=== PATIENT | female | born 1940 | race African-American/Black ===

== ENCOUNTER 2017-01-18 06:47 | Inpatient (IN) ==
[2017-01-18] MEDS ORDERED: VANCOMYCIN INJ 1,000 MG in SODIUM CHLORIDE 0.9% 250 ML IV ONE ×2 (07:00→19:49)
[2017-01-18] MEDS ORDERED: VANCOMYCIN 1,000 MG VIAL ONE (07:20)
[2017-01-18] MEDS ORDERED: ceFAZolin 1,000 MG VIAL ONE (07:21)
[2017-01-18] MEDS ORDERED: SODIUM CHLORIDE 0.9% 100 ML IV ONE (07:21)
[2017-01-18] MEDS ORDERED: FAMOTIDINE 20 MG TABLET PO ONE (07:47)
[2017-01-18] MEDS ORDERED: DIAZEPAM 5 MG TABLET PO ONE (07:48)
[2017-01-18] MEDS ORDERED: FAMOTIDINE 20 MG TABLET ONE (08:08)
[2017-01-18] MEDS ORDERED: DIAZEPAM 5 MG TABLET ONE (08:08)
[2017-01-18 08:12] LABS: PT Patient Result 10.3 SECS; Partial Thromboplastin Time 30.6 SECS (0-40)
[2017-01-18] MEDS: LACTATED RINGERS 1,000 ML IV SCH ×3 (08:25→22:27)
[2017-01-18] MEDS ORDERED: NEOMYCIN/POLYMYXIN/BACITRACIN OINT 28.4 GM TUBE TOP ONE (09:39)
[2017-01-18] MEDS ORDERED: TRANEXAMIC ACID 1,000 MG/10 ML VIAL IV ONE (09:56)
[2017-01-18] MEDS ORDERED: ROPIVACAINE 0.5% 30 ML VIAL ONE (10:56)
[2017-01-18] MEDS ORDERED: ZALEPLON 5 MG CAPSULE PO PRN (11:48)
[2017-01-18] MEDS ORDERED: MAGNESIUM HYDROXIDE SUSP 30 ML UDCUP PO PRN (11:48)
[2017-01-18] MEDS ORDERED: oxyCODONE IR 5 MG TABLET PO PRN ×2 (11:48)
[2017-01-18] MEDS ORDERED: MORPHINE 2 MG/1 ML SYRINGE IV PRN (11:48)
[2017-01-18] MEDS ORDERED: diphenhydrAMINE CAP 25 MG CAPSULE PO PRN (11:48)
--- NOTE | 2017-01-18 11:54 | Operative Note ---
Date of procedure: 01/18/17 Procedure: DIAGNOSIS: Right knee primary osteoarthrosis PROCEDURE: Right total knee arthroplasty (cpt #61229) SURGEON: Chantel ANESTHESIA: Spinal with a postoperative adductor canal block PROCEDURE and FINDINGS: After adequate was induced, the patient's knee was prepped and draped in the usual sterile fashion. The limb was exsanguinated with Esmarch. Tourniquet was inflated to 300 mmHg. The tourniquet was a venous tourniquet and was released at 2 minutes. A median parapatellar approach was made. Femur was cut using an intramedullary guide and a 4 in 1 cutting jig in 5 degrees of valgus. ACL and menisci were excised. Tibia was cut using intramedullary guide. Patella was cut using freehand technique. Components were trialed. Tibial fin was prepared. Components are cemented in place using Palacos cement and modern cementing techniques. Cement was removed. A 1/8 inch Hemovac drain was placed. The knee was well-balanced and full range of motion with central tracking patella. Deep layers closed with 0-0 Vicryl. Superficial layers were closed with 2-0 and 3-0 Vicryl. Skin was approximated with nicky. Bacitracin and a sterile dressing was applied. Patient was transferred to recovery. A postoperative adductor canal block is anticipated. COMPONENTS: The Jayne Persona system was used. 7 CR narrow femur, D natural tibia, 10 mm liner, 29 mm patella TOURNIQUET TIME: 2 minutes Surgeon / Physician: Femi Golden Jr. Discharge Plan - Discharge Medications No Action Spironolactone [Aldactone] 100 mg PO DAILY Metolazone [Zaroxolyn] 5 mg PO DAILY Allopurinol [Zyloprim] 100 mg PO BID Amiodarone Tab [Cordarone Tab] 200 mg PO DAILY Lisinopril [Prinivil] 5 mg PO DAILY Levothyroxine Tab [Synthroid Tab] 175 mcg PO DAILY Tramadol HCl [Tramadol Tab] 50 mg PO Q6H PRN PRN Reason: Pain Ursodiol 600 mg PO BID Vitamin E 400 unit PO DAILY Nabumetone 500 mg PO BID Sulfameth/Trimeth 800-160 Tab [Bactrim DS Tab] 1 each PO BID - Follow Up or Referral - Forms/Instructions
[2017-01-18] MEDS ORDERED: MIDAZOLAM 2 MG/2 ML VIAL ONE (12:06)
[2017-01-18] MEDS ORDERED: fentaNYL 100 MCG/2 ML VIAL ONE (12:06)
[2017-01-18] MEDS ORDERED: ePHEDrine 50 MG/ML AMP ONE (12:07)
--- NOTE | 2017-01-18 14:09 | Orthopedic Progress Note ---
Orthopedics - Subjective Interval history: Mrs. Flores is comfortable postop. She is eating a clear liquid lunch. Dressing is clean, dry and intact. Right lower extremities neurovascularly unchanged. Plan: Mobilize per protocol. Exam - Constitutional Vitals: Period Temp Pulse Resp BP Sys/Ortiz Pulse Ox Last 24 Hr 97.3 F-98.8 F 61-75 16-20 105-157/48-66 95-100
[2017-01-18] MEDS: KETOROLAC 15 MG/1 ML VIAL IV SCH ×2 (14:53→18:15)
--- NOTE | 2017-01-18 15:23 | XRay Report ---
Exam: XR knee 2V RT Date: 01/18/2017 11:50 AM Comparison: None Indication: Knee replacement Technique:[AP and lateral right knee] Findings: Recent satisfactory right total knee replacement with postoperative changes. Impression: Recent satisfactory right total knee replacement with postoperative findings. PROCEDURE INTERPRETED AT [facility] DEPARTMENT OF RADIOLOGY Final Report Signed by: Dr. Griselda Mims
--- NOTE | 2017-01-18 17:45 | Family Practice History&Phys ---
Assessment and Plan (1) status post right total knee replacement Status: Acute Assessment and plan: Patient is stable postoperatively. We will follow-up with you thank you Current Visit: Yes (2) chronic renal insufficiency stage II Status: Chronic Assessment and plan: Stable at present. Current Visit: Yes (3) type 2 diabetes mellitus Status: Chronic Assessment and plan: Stable on present medications Current Visit: Yes (4) carcinoma left breast with mastectomy Status: Chronic Assessment and plan: Stable at present Current Visit: No (5) paroxysmal SVT Status: Chronic Assessment and plan: Stable on present medications Current Visit: Yes (6) hypertension Status: Chronic Assessment and plan: Stable with present treatment plan Current Visit: No (7) hypothyroidism Status: Chronic Assessment and plan: Stable with present medications Current Visit: No (8) obstructive Sleep apnea Status: Chronic Assessment and plan: Stable at present Current Visit: No (9) gastroesophageal reflux disease Status: Chronic Assessment and plan: Stable on present medication Current Visit: No History of Present Illness Chief complaint: status post right total knee replacement History of present illness: Ms. Flores is a 76 year old female Patient is a 76-year-old black female well-known to me who is now status post right total knee replacement. Patient tolerated surgery well and is presently doing well. No postoperative complications noted. Denies any complaints other than related to incisional pain. Vitals are stable and her exam is stable otherwise. We'll follow with you ,thank you Home Medications Medication Instructions Recorded Confirmed Type Allopurinol [Zyloprim] 100 mg PO BID 08/27/14 01/18/17 History Amiodarone Tab [Cordarone Tab] 200 mg PO DAILY 08/27/14 01/18/17 History Lisinopril [Prinivil] 5 mg PO DAILY 08/27/14 01/18/17 History Metolazone [Zaroxolyn] 5 mg PO DAILY 08/27/14 01/18/17 History Spironolactone [Aldactone] 100 mg PO DAILY 08/27/14 01/18/17 History Levothyroxine Tab [Synthroid Tab] 175 mcg PO DAILY 05/03/16 01/18/17 History Ursodiol 600 mg PO BID 05/03/16 01/18/17 History Vitamin E 400 unit PO DAILY 05/03/16 01/18/17 History Nabumetone 500 mg PO BID 01/11/17 01/18/17 History Tramadol HCl [Tramadol Tab] 50 mg PO Q6H PRN 01/11/17 01/18/17 History Sulfameth/Trimeth 800-160 Tab 1 each PO BID 01/18/17 01/18/17 History [Bactrim DS Tab] Allergies Allergy/AdvReac Type Severity Reaction Status Date / Time Oxycodone [From OxyContin] Allergy Severe Palpitation Verified 01/18/17 13:19 s butalbital [From Fioricet] Allergy Intermediate Vomiting Verified 01/18/17 13:19 hydrocodone [From Lortab] Allergy Mild Vomiting Verified 01/18/17 07:52 Medical,Surgical,& Family Hx - Medical History Cardio: History of: Cardiac Dysrhythmia (history supraventricular tachycardia), CHF, CAD, Hypertension, Cardiovascular Problems (DR JHA.) Neurology: No history of: Seizures HEENT: History of: Eye Problem (wears glasses) Endocrine: History of: Diabetes Mellitus (NIDDM) (pt is a diabetic but does not take meds), Thyroid Disorder Comment Only: Diabetes Mellitus (IDDM) (pt is a diabetic but does not take meds) Rheumatology: History of;: Rheumatoid Arthritis Respiratory: History of: Obstructive Sleep Apnea (PT STATES SHE CAN NOT USE IT.) , Pneumonia Comment Only: Respiratory Problems (FLU VAC-YES 2015; PNEU VAC- YES.) Renal: History of: Renal Problems (RENAL INSUFF) Gastrointestinal: History of: Bowel Obstruction, GERD, Hemorrhoids, Hepatitis ( history of hepatitis C), Liver Problems (cirrhosis), GI Problems (CONSTIPATION.) Hematology: History of: Anemia, Blood Disorders (polyclonal gammopathy) Other: History of: Miscellaneous Medical Problems (polyclonal gammopathy) Comment Only: Cancer (breast ca) - Surgical History Thoracic Surgeries: Patient denies;: Organ Transplant Abdominal Surgeries: Surgical HX of: Cholecystectomy, Colonoscopy, EGD Reproductive Surgeries: Surgical HX of;: Breast Surgery (ELOISA LUMPECTOMY), Hysterectomy, Tubal Ligation Comment Only: Gynecologic Surgery (hyst tubal) Orthopedic Surgeries: Surgical HX of;: Orthopedic Surgery (RT SCOPE.), Total Hip Replacement (RT), Total Knee Replacement (LEFT; RIGHT) - Family History Family History: Reports;: Family Cancer, Family Stroke - Social History Smoking Status: Former smoker Frequency of Alcohol Use: None Type of Drug Use: None Marital Status: Lives With:: Spouse Functional capacity: uses cane/walker Exam - Constitutional Vitals: Period Temp Pulse Resp BP Sys/Ortiz Pulse Ox Last 24 Hr 97.3 F-98.8 F 61-75 16-20 105-157/48-66 95-100 General appearance: mild distress - Head Head exam: Present: normal inspection - Eye Pupils: Present: JOHN - ENT ENT exam: Present: normal exam - Neck Neck exam: Present: normal inspection - Respiratory Respiratory exam: Present: clear to auscultation bilaterally - Cardiovascular Cardiovascular exam: Present: irregular rhythm - GI/Abdominal GI/Abdominal exam: Present: normal bowel sounds, soft - Extremities Exam Extremities exam: Present: other (dressing right knee secondary to surgery otherwise stable) - Back Exam Back exam: Present: normal inspection - Neurological Exam Neurological exam: Present: alert - Psychiatric Psychiatric exam: Present: normal affect - Skin Skin exam: Present: normal color
[2017-01-18] MEDS: ceFAZolin 2,000 MG in PREMIX 1 EACH IV SCH (18:15)
[2017-01-18] MEDS: ACETAMINOPHEN 500 MG TABLET PO SCH ×2 (18:16→21:24)
[2017-01-18] MEDS: DOCUSATE SODIUM 100 MG CAPSULE PO SCH (20:45)
[2017-01-18] MEDS: URSODIOL 300 MG CAPSULE PO SCH (20:45)
[2017-01-18] MEDS: ALLOPURINOL 100 MG TABLET PO SCH (20:46)
[2017-01-18] MEDS ORDERED: SULFAMETHOX/TRIMETHOPRIM 800-160 MG TABLET PO SCH (21:00)
[2017-01-19] MEDS: ceFAZolin 2,000 MG in PREMIX 1 EACH IV SCH (01:11)
[2017-01-19] MEDS: KETOROLAC 15 MG/1 ML VIAL IV SCH ×2 (01:12→05:53)
[2017-01-19] MEDS: ACETAMINOPHEN 500 MG TABLET PO SCH ×2 (04:41→10:25)
[2017-01-19] MEDS: LACTATED RINGERS 1,000 ML IV SCH ×2 (04:41→10:04)
[2017-01-19 05:18] LABS: Basophils # 0.1 10*3/uL (0.0-0.2); Basophils % 0.6 % (0.0-0.8); Eosinophils # 0.1 10*3/uL (0.0-0.87); Eosinophils % 1.3 % (0.00-10.9); Hematocrit 26.6 VOL% (35.7-47.0); Hemoglobin 8.7 GM/DL (12.0-16.0); Immature Granulocytes % 0.4 %; Immature Granulocytes Absolute 0.03 #; Lymphocytes # 1.4 10*3/uL (1.4-4.0); Lymphocytes % 18.4 % (21.3-54.2); Mean Corpuscular HGB Conc 32.7 GM/DL (32-36); Mean Corpuscular Hemoglobin 32 PG (27-34); Mean Corpuscular Volume 97.8 FL (87-102); Mean Platelet Volume 11.4 FL (9.6-12.0); Monocytes # 1.3 10*3/uL (0.11-0.8); Monocytes % 16.5 % (1.7-12.7); Neutrophils # 4.9 10*3/uL (1.4-7.4); Neutrophils % 62.8 % (38.7-73.9); Platelet Count 135 T/CUMM (130-400); Red Blood Count 2.72 MC/CUMM (3.8-5.5); White Blood Count 7.8 T/CUMM (4-12)
[2017-01-19 05:44] LABS: Band Neutrophils 2 % (0-10); Eosinophils 4 % (0-10); Giant Platelets Few; Hypochromasia 1+; Lymphocytes 18 % (20-55); Macrocytosis Slight; Platelet Estimate Normal; Segmented Neutrophils 60 % (50-85); Total Cells Counted 100
[2017-01-19] MEDS: ONDANSETRON 4 MG/2 ML VIAL IV PRN ×3 (05:50→20:45)
[2017-01-19 05:56] LABS: Calcium 9.2 MG/DL (8.5-10.1); Osmolality,Calculated 284.7 MOS/KG (273-304)
[2017-01-19 05:59] LABS: Potassium 6.2 MMOL/L (3.5-5.1)
[2017-01-19] MEDS: SODIUM POLYSTYRENE SULFATE 15 GM/60 ML BOTTLE PO STA ×2 (07:13→08:44)
--- NOTE | 2017-01-19 07:31 | Orthopedic Progress Note ---
Orthopedics - Subjective Interval history: Very comfortable. She was able to work with physical therapy yesterday. Dressing clean, dry and intact. Right lower extremity is neurovascularly unchanged. Patient's potassium is 6.[address] Calloway has already ordered Kayexalate. Plan: Mobilize with physical therapy. Change to Lovenox because of chronic renal insufficiency. Management of hyperkalemia per Dr. Calloway. Stop LR. Exam - Constitutional Vitals: Period Temp Pulse Resp BP Sys/Ortiz Pulse Ox Last 24 Hr 97.3 F-99.5 F 61-75 16-20 104-157/48-69 95-100 Results - Labs CBC & BMP: 01/19/17 04:56 01/19/17 04:56
--- NOTE | 2017-01-19 08:18 | Family Practice Progress Note ---
Family Practice - PN: Subj Interval history: Patient is stable this a.m. Having some incisional pain but controlled. No new complaints. A.m. labs revealed potassium of 6.2. Creatinine is a 2.4 which is slightly elevated from baseline at 1.8 in the office. I have modified meds that would have an effect on potassium and creatinine. Will modify IV fluids. Presently receiving Kayexalate and will plan to repeat potassium later this p.m. Hopefully this will correct with fluids. Otherwise a physical examination is stable Exam (Progress Note) - Constitutional Vitals: Period Temp Pulse Resp BP Sys/Ortiz Pulse Ox Last 24 Hr 97.3 F-99.5 F 61-90 16-20 104-137/48-69 95-100 Results - Labs CBC & BMP: 01/19/17 04:56 01/19/17 04:56 Assessment and Plan (1) status post right total knee replacement Status: Acute Assessment and plan: Patient is stable postoperatively. We will follow-up with you thank you Current Visit: Yes (2) chronic renal insufficiency stage II Status: Chronic Assessment and plan: Stable at present. Current Visit: Yes (3) type 2 diabetes mellitus Status: Chronic Assessment and plan: Stable on present medications Current Visit: Yes (4) carcinoma left breast with mastectomy Status: Chronic Assessment and plan: Stable at present Current Visit: No (5) paroxysmal SVT Status: Chronic Assessment and plan: Stable on present medications Current Visit: Yes (6) hypertension Status: Chronic Assessment and plan: Stable with present treatment plan Current Visit: No (7) hypothyroidism Status: Chronic Assessment and plan: Stable with present medications Current Visit: No (8) obstructive Sleep apnea Status: Chronic Assessment and plan: Stable at present Current Visit: No (9) gastroesophageal reflux disease Status: Chronic Assessment and plan: Stable on present medication Current Visit: No Specialty Discharge - Follow Up or Referrals Follow up with: Femi Golden Jr., MD [Physician] -
[2017-01-19] MEDS: URSODIOL 300 MG CAPSULE PO SCH ×2 (08:41→21:16)
[2017-01-19] MEDS: DOCUSATE SODIUM 100 MG CAPSULE PO SCH ×2 (08:43→21:16)
[2017-01-19] MEDS: LEVOTHYROXINE 175 MCG TABLET PO SCH (08:43)
[2017-01-19] MEDS: AMIODARONE 200 MG TABLET PO SCH (08:43)
[2017-01-19] MEDS: VITAMIN E 400 UNIT CAPSULE PO SCH (08:43)
[2017-01-19] MEDS: ALLOPURINOL 100 MG TABLET PO SCH ×2 (08:43→21:17)
[2017-01-19] MEDS: LISINOPRIL 5 MG TABLET PO SCH (08:44)
[2017-01-19] MEDS: metOLazone 5 MG TABLET PO SCH (08:44)
[2017-01-19] MEDS: SODIUM POLYSTYRENE SULFATE 15 GM/60 ML BOTTLE PO SCH ×2 (08:45→17:31)
[2017-01-19] MEDS ORDERED: SPIRONOLACTONE 100 MG TABLET PO SCH (09:00)
[2017-01-19] MEDS ORDERED: FONDAPARINUX 2.5 MG/0.5 ML SYRINGE SUBCUT SCH (09:00)
[2017-01-19] MEDS: SODIUM CHLORIDE 0.9% 1,000 ML IV SCH ×2 (10:04→21:17)
[2017-01-19] MEDS: INSULIN LISPRO 100 UNIT/ML SUBCUT SCH ×3 (11:19→21:17)
[2017-01-19] MEDS ORDERED: ACETAMINOPHEN 325 MG TABLET PO PRN (11:49)
[2017-01-19 15:49] LABS: Calcium 9.6 MG/DL (8.5-10.1); Potassium 5.7 MMOL/L (3.5-5.1)
[2017-01-19] MEDS: traMADol 50 MG TABLET PO PRN (17:32)
[2017-01-19] MEDS ORDERED: CELECOXIB 200 MG CAPSULE PO SCH (17:49)
[2017-01-19] MEDS: MORPHINE 2 MG/1 ML SYRINGE IV PRN (21:16)
[2017-01-20] MEDS: SODIUM POLYSTYRENE SULFATE 15 GM/60 ML BOTTLE PO SCH (00:38)
[2017-01-20] MEDS: MORPHINE 2 MG/1 ML SYRINGE IV PRN ×3 (04:26→21:59)
[2017-01-20 06:36] LABS: Basophils # 0.1 10*3/uL (0.0-0.2); Basophils % 0.4 % (0.0-0.8); Eosinophils # 0.1 10*3/uL (0.0-0.87); Hematocrit 26.7 VOL% (35.7-47.0); Hemoglobin 8.6 GM/DL (12.0-16.0); Immature Granulocytes % 0.5 %; Immature Granulocytes Absolute 0.06 #; Lymphocytes # 1.5 10*3/uL (1.4-4.0); Lymphocytes % 12.6 % (21.3-54.2); Mean Corpuscular HGB Conc 32.2 GM/DL (32-36); Mean Corpuscular Hemoglobin 32 PG (27-34); Mean Platelet Volume 11.9 FL (9.6-12.0); Monocytes # 1.6 10*3/uL (0.11-0.8); Monocytes % 13.7 % (1.7-12.7); Neutrophils # 8.3 10*3/uL (1.4-7.4); Neutrophils % 71.8 % (38.7-73.9); Platelet Count 134 T/CUMM (130-400); Red Blood Count 2.67 MC/CUMM (3.8-5.5); Red Cell Distribution Width 14.4 % (9.3-17.3); White Blood Count 11.5 T/CUMM (4-12)
[2017-01-20 07:00] LABS: Calcium 8.8 MG/DL (8.5-10.1); Osmolality,Calculated 283.7 MOS/KG (273-304); Potassium 5.2 MMOL/L (3.5-5.1)
--- NOTE | 2017-01-20 07:17 | Orthopedic Progress Note ---
Orthopedics - Subjective Interval history: Ms. Flores is a little bit sore since the nerve block wore off yesterday. She is progressing very slowly with physical therapy. Patient slipped on the floor last night while going to the bathroom. Her was assisting her. She denies any injury. Dressing has some serosanguineous drainage. Right lower extremities neurovascularly unchanged. There is no deformity. Creatinine 2.4. Potassium 5.2. Impression: Hyperkalemia improved. Postop day 2. Plan: Mobilize with physical therapy. Even though the patient would like to go home, I think we need to look for swing bed placement. Exam - Constitutional Vitals: Period Temp Pulse Resp BP Sys/Ortiz Pulse Ox Last 24 Hr 97.0 F-99.1 F 66-90 18-20 115-155/52-74 95-99 Results - Labs CBC & BMP: 01/20/17 04:56 01/20/17 04:56 Specialty Discharge - Follow Up or Referrals Follow up with: Femi Golden Jr., MD [Physician] -
[2017-01-20] MEDS: INSULIN LISPRO 100 UNIT/ML SUBCUT SCH ×4 (07:19→21:55)
[2017-01-20 07:21] LABS: Free T4 (Free Thyroxine) 1.58 NG/DL (0.76-1.46); Thyroid Stimulating Hormone 7.65 uIU/ml (0.358-3.74)
--- NOTE | 2017-01-20 08:32 | Family Practice Progress Note ---
Family Practice - PN: Subj Interval history: Patient is stable this a.m. Having some incisional pain but controlled. No new complaints. A.m. labs revealed potassium of 6.2. Creatinine is a 2.4 which is slightly elevated from baseline at 1.8 in the office. I have modified meds that would have an effect on potassium and creatinine. Will modify IV fluids. Presently receiving Kayexalate and will plan to repeat potassium later this p.m. Hopefully this will correct with fluids. Otherwise a physical examination is stable 01/20/17-patient feels better this a.m. She was having some nausea after taking the Kayexalate. Her potassium is 5.2 this a.m. so we will stop the Kayexalate and monitor. Her other labs are stable. Pain is controlled with present medications. Her vitals are stable. Physical examination is stable except for pain in right knee. We will continue present treatment plan. Patient will need to go to swing bed on discharge. We will repeat labs in a.m. Exam (Progress Note) - Constitutional Vitals: Period Temp Pulse Resp BP Sys/Ortiz Pulse Ox Last 24 Hr 97.0 F-99.1 F 66-83 18-20 115-155/52-74 95-99 Results - Labs CBC & BMP: 01/20/17 04:56 01/20/17 04:56 Assessment and Plan (1) status post right total knee replacement Status: Acute Assessment and plan: Patient is stable postoperatively. We will follow-up with you thank you Current Visit: Yes (2) chronic renal insufficiency stage II Status: Chronic Assessment and plan: Stable at present. Current Visit: Yes (3) type 2 diabetes mellitus Status: Chronic Assessment and plan: Stable on present medications Current Visit: Yes (4) carcinoma left breast with mastectomy Status: Chronic Assessment and plan: Stable at present Current Visit: No (5) paroxysmal SVT Status: Chronic Assessment and plan: Stable on present medications Current Visit: Yes (6) hypertension Status: Chronic Assessment and plan: Stable with present treatment plan Current Visit: No (7) hypothyroidism Status: Chronic Assessment and plan: Stable with present medications Current Visit: No (8) obstructive Sleep apnea Status: Chronic Assessment and plan: Stable at present Current Visit: No (9) gastroesophageal reflux disease Status: Chronic Assessment and plan: Stable on present medication Current Visit: No Specialty Discharge - Follow Up or Referrals Follow up with: Femi Golden Jr., MD [Physician] -
[2017-01-20] MEDS: SODIUM CHLORIDE 0.9% 1,000 ML IV SCH ×2 (09:50→23:17)
[2017-01-20] MEDS: ENOXAPARIN 30 MG/0.3 ML SYRINGE SUBCUT SCH (09:56)
[2017-01-20] MEDS: URSODIOL 300 MG CAPSULE PO SCH ×2 (09:56→21:54)
[2017-01-20] MEDS: DOCUSATE SODIUM 100 MG CAPSULE PO SCH ×2 (09:56→21:55)
[2017-01-20] MEDS: AMIODARONE 200 MG TABLET PO SCH (09:56)
[2017-01-20] MEDS: LEVOTHYROXINE 175 MCG TABLET PO SCH (09:57)
[2017-01-20] MEDS: LISINOPRIL 5 MG TABLET PO SCH (09:57)
[2017-01-20] MEDS: VITAMIN E 400 UNIT CAPSULE PO SCH (09:57)
[2017-01-20] MEDS: metOLazone 5 MG TABLET PO SCH (10:03)
[2017-01-20] MEDS: ALLOPURINOL 100 MG TABLET PO SCH ×2 (10:05→21:55)
[2017-01-21] MEDS: SODIUM CHLORIDE 0.9% 1,000 ML IV SCH (02:58)
[2017-01-21 04:48] LABS: Basophils % 0.2 % (0.0-0.8); Eosinophils # 0.2 10*3/uL (0.0-0.87); Eosinophils % 1.6 % (0.00-10.9); Hematocrit 24.3 VOL% (35.7-47.0); Hemoglobin 7.9 GM/DL (12.0-16.0); Immature Granulocytes % 0.4 %; Immature Granulocytes Absolute 0.05 #; Lymphocytes # 2.2 10*3/uL (1.4-4.0); Lymphocytes % 18.4 % (21.3-54.2); Mean Corpuscular HGB Conc 32.5 GM/DL (32-36); Mean Corpuscular Hemoglobin 32 PG (27-34); Mean Corpuscular Volume 99.2 FL (87-102); Mean Platelet Volume 11.7 FL (9.6-12.0); Monocytes # 1.9 10*3/uL (0.11-0.8); Neutrophils # 7.7 10*3/uL (1.4-7.4); Neutrophils % 63.4 % (38.7-73.9); Platelet Count 131 T/CUMM (130-400); Red Blood Count 2.45 MC/CUMM (3.8-5.5); Red Cell Distribution Width 14.3 % (9.3-17.3); White Blood Count 12.1 T/CUMM (4-12)
[2017-01-21 05:20] LABS: Calcium 8.2 MG/DL (8.5-10.1); Osmolality,Calculated 284.5 MOS/KG (273-304); Potassium 4.5 MMOL/L (3.5-5.1)
[2017-01-21 05:52] LABS: Eosinophils 3 % (0-10); Lymphocytes 11 % (20-55); Metamyelocytes 2 %; Segmented Neutrophils 78 % (50-85)
[2017-01-21 05:53] LABS: Platelet Estimate Normal
[2017-01-21 05:55] LABS: Atypical Lymphocytes Few; Hypochromasia Slight; Total Cells Counted 100
[2017-01-21] MEDS: MORPHINE 2 MG/1 ML SYRINGE IV PRN (07:10)
[2017-01-21] MEDS: INSULIN LISPRO 100 UNIT/ML SUBCUT SCH (07:18)
[2017-01-21 07:36] VITALS: BP 137/64
--- NOTE | 2017-01-21 08:02 | Orthopedic Progress Note ---
Orthopedics - Subjective Interval history: Ms. Flores is still requiring significant assistance with physical therapy. She is making very slow progress. Dressing is clean, dry and intact. Right lower extremities neurovascularly unchanged. Hemoglobin 7.9. Creatinine 2.4 Plan: Mobilize with physical therapy. Plan swing bed placement. Stop IV fluids. Watch H&H. Exam - Constitutional Vitals: Period Temp Pulse Resp BP Sys/Ortiz Pulse Ox Last 24 Hr 97.4 F-99.7 F 70-88 18-22 114-170/52-71 96-97 Results - Labs CBC & BMP: 01/21/17 04:06 01/21/17 04:06 Specialty Discharge - Follow Up or Referrals Follow up with: Femi Golden Jr., MD [Physician] -
--- NOTE | 2017-01-21 08:05 | Discharge Summary ---
Hospital Course - Hospital Course Hospital Course: Ms. Flores was admitted after undergoing a right total knee replacement. Dr. Calloway was consulted to help manage medical problems. The patient was hyperkalemic postoperative day #1. She responded to Kayexalate, hydration and medicine changes. Patient has chronic renal insufficiency and her creatinine stayed at 2.4. She was slow to progress with physical therapy. Specialty Discharge - Follow Up or Referrals Follow up with: Femi Golden Jr., MD [Physician] - Discharge Plan - Discharge Data Disposition: Disch/Xfer to Snf Condition at Discharge: Stable Discharge Diet: advance to your usual diet Activity: ambulate only with your walker Hygiene: may shower Weight Bearing at Discharge: weight bear as tolerated Driving: not until seen by doctor - Discharge Medications New Docusate Sodium Cap [Colace Cap] 100 mg PO BID capsule Magnesium Hydroxide Susp [Milk of Magnesia] 30 ml PO Q6H PRN PRN Reason: Constipation Acetaminophen Tab [Tylenol Tab] 650 mg PO Q6H PRN tablet PRN Reason: Pain Mild (1-3) Enoxaparin [Lovenox] 30 mg SUBCUT Q24H 7 Days Continue Metolazone [Zaroxolyn] 5 mg PO DAILY Allopurinol [Zyloprim] 100 mg PO BID Amiodarone Tab [Cordarone Tab] 200 mg PO DAILY Lisinopril [Prinivil] 5 mg PO DAILY Levothyroxine Tab [Synthroid Tab] 175 mcg PO DAILY Tramadol HCl [Tramadol Tab] 50 mg PO Q6H PRN PRN Reason: Pain Ursodiol 600 mg PO BID Vitamin E 400 unit PO DAILY No Action Spironolactone [Aldactone] 100 mg PO DAILY Nabumetone 500 mg PO BID Sulfameth/Trimeth 800-160 Tab [Bactrim DS Tab] 1 each PO BID - Follow Up or Referral Follow Up: Femi Golden Jr., MD [Physician] - - Forms/Instructions Additional Discharge Instructions: Daily dry dressing changes. Weightbearing as tolerated. Arrange walker and bedside commode for home use. Wear KEVIN hose for 1 month. Discontinue nicyk and Steri-Strip wound on January 29, 2017. Follow-up appointment in 4 weeks. Prescription for tramadol was written. Exam - Constitutional Vitals: Period Temp Pulse Resp BP Sys/Ortiz Pulse Ox Last 24 Hr 97.4 F-99.7 F 70-88 18-22 114-170/52-71 96-97 Discharge Results Procedures and tests throughout hospitalization: Pending Orders 01/19/17 08:13 Urinalysis Routine 01/22/17 04:00 BMP [Basic Metabolic Panel] IN AM Labs on day of discharge: Labs from last 24 hours 01/21/17 01/21/17 01/21/17 07:05 04:06 04:06 WBC 12.1 H RBC 2.45 L Hgb 7.9 L Hct 24.3 L MCV 99.2 MCH 32 MCHC 32.5 RDW 14.3 Plt Count 131 MPV 11.7 Neut % (Auto) 63.4 Lymph % (Auto) 18.4 L [place] % (Auto) 16.0 H Eos % (Auto) 1.6 Baso % (Auto) 0.2 Neut # (Auto) 7.7 H Lymph # (Auto) 2.2 [place] # (Auto) 1.9 H Eos # (Auto) 0.2 Baso # (Auto) 0.0 Total Counted 100 Immature Gran % 0.4 Nucleated RBC % 0.0 Immature Gran # 0.05 Segmented Neutrophils 78 Lymphocytes 11 L Monocytes 6 Eosinophils 3 Metamyelocytes 2 Nucleated RBCs # 0.00 Atypical Lymphocytes Few Platelet Estimate Normal Immature Plt Fraction 0.0 Hypochromasia Slight Sodium Potassium Chloride Carbon Dioxide Anion Gap BUN Creatinine GFR Calculation BUN/Creatinine Ratio Glucose POC Glucose 104 Calculated Osmolality Calcium TSH 3rd Generation 8.380 H 01/21/17 01/20/17 01/20/17 04:06 19:45 15:20 WBC RBC Hgb Hct MCV MCH MCHC RDW Plt Count MPV Neut % (Auto) Lymph % (Auto) [place] % (Auto) Eos % (Auto) Baso % (Auto) Neut # (Auto) Lymph # (Auto) [place] # (Auto) Eos # (Auto) Baso # (Auto) Total Counted Immature Gran % Nucleated RBC % Immature Gran # Segmented Neutrophils Lymphocytes Monocytes Eosinophils Metamyelocytes Nucleated RBCs # Atypical Lymphocytes Platelet Estimate Immature Plt Fraction Hypochromasia Sodium 139 Potassium 4.5 Chloride 110 H Carbon Dioxide 21 Anion Gap 12.5 BUN 31 H Creatinine 2.40 H GFR Calculation 28 BUN/Creatinine Ratio 12.00 Glucose 112 H POC Glucose 162 H 178 H Calculated Osmolality 284.5 Calcium 8.2 L TSH 3rd Generation 01/20/17 11:09 WBC RBC Hgb Hct MCV MCH MCHC RDW Plt Count MPV Neut % (Auto) Lymph % (Auto) [place] % (Auto) Eos % (Auto) Baso % (Auto) Neut # (Auto) Lymph # (Auto) [place] # (Auto) Eos # (Auto) Baso # (Auto) Total Counted Immature Gran % Nucleated RBC % Immature Gran # Segmented Neutrophils Lymphocytes Monocytes Eosinophils Metamyelocytes Nucleated RBCs # Atypical Lymphocytes Platelet Estimate Immature Plt Fraction Hypochromasia Sodium Potassium Chloride Carbon Dioxide Anion Gap BUN Creatinine GFR Calculation BUN/Creatinine Ratio Glucose POC Glucose 162 H Calculated Osmolality Calcium TSH 3rd Generation DS: Provider Date of admission: 01/18/17 06:47 Primary care physician: Christian Calloway DO Attending physician on admission: Femi Golden Jr., Consults: 01/18/17 11:48 Consult to Case Mgmt/Social Srvs [CONS] Routine Reason for Case Mgmt/Social Srvs: Rehab Home Health Equipment Consult Comment: Bedside Commode, CPM, Walker Consult to Occupational Therapy [CONS] Routine Reason for Occupational Therapy: Evaluate and Treat Consult Comment: ADL's Consult to Physical Therapy [CONS] Routine Reason for Physical Therapy: Evaluate and Treat Gait Training Start Therapy: Today Consult Comment: wbat 01/18/17 13:03 Consult to Physician [CONS] Routine Comment: Consulting Provider: Christian Calloway Consulting Provider Notified: Yes When should Consulting Provider be notified: Now Person Notified: danielle called Date Notified: 01/18/17 Time Notified: 13:05 01/18/17 14:03 Consult to Pastoral Services [CONS] Routine Comment: Pastoral Screen: Request Security Door Installer Visit Pastoral Screen Source of Request: Patient Discharging clinician: Femi Golden Jr., Expected date of discharge: 01/21/17
--- NOTE | 2017-01-21 08:11 | Family Practice Progress Note ---
Family Practice - PN: Subj Interval history: Patient is stable this a.m. Having some incisional pain but controlled. No new complaints. A.m. labs revealed potassium of 6.2. Creatinine is a 2.4 which is slightly elevated from baseline at 1.8 in the office. I have modified meds that would have an effect on potassium and creatinine. Will modify IV fluids. Presently receiving Kayexalate and will plan to repeat potassium later this p.m. Hopefully this will correct with fluids. Otherwise a physical examination is stable 01/20/17-patient feels better this a.m. She was having some nausea after taking the Kayexalate. Her potassium is 5.2 this a.m. so we will stop the Kayexalate and monitor. Her other labs are stable. Pain is controlled with present medications. Her vitals are stable. Physical examination is stable except for pain in right knee. We will continue present treatment plan. Patient will need to go to swing bed on discharge. We will repeat labs in a.m. 01/21/17 -patient is doing well except for pain in her knee. She ambulated well. She denies any other related complaints this a.m. Her a.m. labs are stable. Her physical examination is stable. Patient is scheduled to transfer to swing bed today. Hopefully she will continue to improve. I will see patient after discharge from swing bed in the office. Exam (Progress Note) - Constitutional Vitals: Period Temp Pulse Resp BP Sys/Ortiz Pulse Ox Last 24 Hr 97.4 F-99.7 F 70-88 18-22 114-170/52-71 96-97 Results - Labs CBC & BMP: 01/21/17 04:06 01/21/17 04:06 Assessment and Plan (1) status post right total knee replacement Status: Acute Assessment and plan: Patient is stable postoperatively. We will follow-up with you thank you Current Visit: Yes (2) chronic renal insufficiency stage II Status: Chronic Assessment and plan: Stable at present. Current Visit: Yes (3) type 2 diabetes mellitus Status: Chronic Assessment and plan: Stable on present medications Current Visit: Yes (4) carcinoma left breast with mastectomy Status: Chronic Assessment and plan: Stable at present Current Visit: No (5) paroxysmal SVT Status: Chronic Assessment and plan: Stable on present medications Current Visit: Yes (6) hypertension Status: Chronic Assessment and plan: Stable with present treatment plan Current Visit: No (7) hypothyroidism Status: Chronic Assessment and plan: Stable with present medications Current Visit: No (8) obstructive Sleep apnea Status: Chronic Assessment and plan: Stable at present Current Visit: No (9) gastroesophageal reflux disease Status: Chronic Assessment and plan: Stable on present medication Current Visit: No Specialty Discharge - Follow Up or Referrals Follow up with: Femi Golden Jr., MD [Physician] -
[2017-01-21] MEDS: VITAMIN E 400 UNIT CAPSULE PO SCH (08:59)
[2017-01-21] MEDS: AMIODARONE 200 MG TABLET PO SCH (08:59)
[2017-01-21] MEDS: metOLazone 5 MG TABLET PO SCH (08:59)
[2017-01-21] MEDS: URSODIOL 300 MG CAPSULE PO SCH (08:59)
[2017-01-21] MEDS: DOCUSATE SODIUM 100 MG CAPSULE PO SCH (08:59)
[2017-01-21] MEDS: ALLOPURINOL 100 MG TABLET PO SCH (08:59)
[2017-01-21] MEDS: LISINOPRIL 5 MG TABLET PO SCH (08:59)
[2017-01-21] MEDS: LEVOTHYROXINE 175 MCG TABLET PO SCH (08:59)
[2017-01-21] MEDS: ENOXAPARIN 30 MG/0.3 ML SYRINGE SUBCUT SCH (09:01)
[2017-01-21] MEDS: traMADol 50 MG TABLET PO PRN (09:03)
== END 2017-01-21 11:20 | disposition swing bed (61) | DRG 470 ==
LOC: N.SDSINP 06:47 → N.3E 12:52
PROVIDERS: ADMIT Orthopaedic Surgery; ATTEND Orthopaedic Surgery

== ENCOUNTER 2018-11-07 09:11 | Observation (INO) ==
[2018-11-07] MEDS ORDERED: ENOXAPARIN 100 MG/ML SYRINGE SUBCUT STA (09:51)
[2018-11-07] MEDS ORDERED: ASPIRIN 325 MG TABLET PO STA (09:51)
[2018-11-07 09:52] LABS: Basophils # 0.1 10*3/uL (0.0-0.2); Basophils % 0.9 % (0.0-0.8); Eosinophils # 0.1 10*3/uL (0.0-0.87); Eosinophils % 1.8 % (0.00-10.9); Hematocrit 36.3 VOL% (35.7-47.0); Hemoglobin 11.2 GM/DL (12.0-16.0); Immature Granulocytes % 0.3 %; Immature Granulocytes Absolute 0.02 #; Lymphocytes # 2.1 10*3/uL (1.4-4.0); Lymphocytes % 30.7 % (21.3-54.2); Mean Corpuscular HGB Conc 30.9 GM/DL (32-36); Mean Corpuscular Volume 98.6 FL (87-102); Mean Platelet Volume 10.9 FL (9.6-12.0); Monocytes % 15.6 % (1.7-12.7); Neutrophils % 50.7 % (38.7-73.9); Platelet Count 175 T/CUMM (130-400); Red Blood Count 3.68 MC/CUMM (3.8-5.5); Red Cell Distribution Width 14.9 % (9.3-17.3); White Blood Count 6.8 T/CUMM (4-12)
[2018-11-07 10:01] LABS: INR 0.9; PT Patient Result 10.2 SECS; Partial Thromboplastin Time 30.1 SECS (0-40)
[2018-11-07 10:19] LABS: Albumin 3.8 G/DL (3.4-5.0); Bilirubin,Total 0.4 MG/DL (0.2-1.0); Calcium 9.7 MG/DL (8.5-10.1); Osmolality,Calculated 300.1 MOS/KG (273-304); Total Protein 7.5 G/DL (6.4-8.3)
[2018-11-07 10:35] LABS: Eosinophils 2 % (0-10); Lymphocytes 32 % (20-55); Platelet Estimate Adequate; Segmented Neutrophils 54 % (50-85); Total Cells Counted 100
[2018-11-07 10:36] LABS: Hypochromasia 1+
[2018-11-07] MEDS ORDERED: ONDANSETRON 4 MG/2 ML VIAL IV PRN (11:36)
[2018-11-07] MEDS ORDERED: ACETAMINOPHEN 325 MG TABLET PO PRN (11:36)
[2018-11-07] MEDS ORDERED: GLUCAGON 1 MG VIAL IM PRN (11:51)
[2018-11-07] MEDS ORDERED: DEXTROSE 50% 25 GM/50 ML VIAL IV PRN (11:51)
[2018-11-07] MEDS ORDERED: SODIUM CHLORIDE 0.9% 1,000 ML IV SCH (12:00)
[2018-11-07] MEDS: ACETAMINOPHEN 325 MG TABLET PO SCH ×2 (15:39→22:45)
[2018-11-07] MEDS: INSULIN LISPRO 100 UNIT/ML SUBCUT SCH ×2 (17:21→22:45)
[2018-11-07] MEDS: DOCUSATE SODIUM 100 MG CAPSULE PO SCH (22:44)
[2018-11-07] MEDS: FUROSEMIDE 80 MG TABLET PO SCH (22:44)
[2018-11-07] MEDS: ALLOPURINOL 100 MG TABLET PO SCH (22:44)
[2018-11-07] MEDS: URSODIOL 300 MG CAPSULE PO SCH (22:44)
[2018-11-07] MEDS: GABAPENTIN 50 MG/ML 30 ML/BOTTLE PO SCH (22:46)
[2018-11-08 01:30] LABS: Apearance,Urine CLEAR (Clear); Bacteria,Urine Occasional /HPF (Few); Bilirubin,Urine Negative (Negative); Blood, Urine Small mg/dL (Negative); Glucose,Urine (UA) Negative (Negative); Ketones,Urine Negative (Negative); Nitrite,Urine Negative (Negative); Protein,Urine Negative; RBC,Urine 3 /HPF (0-4); Squamous Epithelial Cell,Urine Occasional /HPF (0-10); Urine Color Straw (Yellow); Urine Specific Gravity 1.011 (1.001-1.035); Urine Urobilinogen < 2.0 EU/DL (0.2-1.0); WBC,Urine <1 /HPF (0-6)
[2018-11-08 04:32] LABS: Basophils # 0.1 10*3/uL (0.0-0.2); Basophils % 0.9 % (0.0-0.8); Eosinophils # 0.1 10*3/uL (0.0-0.87); Hematocrit 33.1 VOL% (35.7-47.0); Hemoglobin 10.7 GM/DL (12.0-16.0); Immature Granulocytes % 0.4 %; Immature Granulocytes Absolute 0.02 #; Lymphocytes # 1.8 10*3/uL (1.4-4.0); Lymphocytes % 31.6 % (21.3-54.2); Mean Corpuscular HGB Conc 32.3 GM/DL (32-36); Mean Corpuscular Volume 96.5 FL (87-102); Mean Platelet Volume 11.6 FL (9.6-12.0); Monocytes % 16.7 % (1.7-12.7); Neutrophils % 48.4 % (38.7-73.9); Platelet Count 177 T/CUMM (130-400); Red Blood Count 3.43 MC/CUMM (3.8-5.5); Red Cell Distribution Width 14.7 % (9.3-17.3); White Blood Count 5.6 T/CUMM (4-12)
[2018-11-08 04:54] LABS: Eosinophils 4 % (0-10); Hypochromasia 1+; Lymphocytes 34 % (20-55); Platelet Estimate Adequate; Segmented Neutrophils 45 % (50-85); Total Cells Counted 100
[2018-11-08 04:55] LABS: Albumin 3.4 G/DL (3.4-5.0); Bilirubin,Total 0.6 MG/DL (0.2-1.0); Osmolality,Calculated 294.3 MOS/KG (273-304); Risk Ratio 1.93; Thyroid Stimulating Hormone 14.2 uIU/ml (0.358-3.74); Total Protein 7.5 G/DL (6.4-8.3); VLDL CHOLESTEROL 17.2 MG/DL
[2018-11-08] MEDS ORDERED: LEVOTHYROXINE 175 MCG TABLET PO SCH (09:00)
[2018-11-08] MEDS ORDERED: PANTOPRAZOLE 40 MG TABLET PO SCH (09:00)
[2018-11-08] MEDS ORDERED: REGADENOSON 0.4 MG/5 ML SYRINGE IV ONE (09:18)
[2018-11-08] MEDS: INSULIN LISPRO 100 UNIT/ML SUBCUT SCH ×4 (09:47→21:07)
[2018-11-08] MEDS: ROSUVASTATIN 20 MG TABLET PO SCH (12:31)
[2018-11-08] MEDS: ASPIRIN EC 81 MG TABLET PO SCH (12:32)
[2018-11-08] MEDS: metOLazone 5 MG TABLET PO SCH (12:32)
[2018-11-08] MEDS: DOCUSATE SODIUM 100 MG CAPSULE PO SCH ×2 (12:32→20:57)
[2018-11-08] MEDS: FUROSEMIDE 80 MG TABLET PO SCH ×2 (12:32→20:56)
[2018-11-08] MEDS: VITAMIN E 400 UNIT CAPSULE PO SCH (12:32)
[2018-11-08] MEDS: URSODIOL 300 MG CAPSULE PO SCH ×2 (12:32→20:56)
[2018-11-08] MEDS: ACETAMINOPHEN 325 MG TABLET PO SCH ×2 (12:33→20:56)
[2018-11-08] MEDS: ALLOPURINOL 100 MG TABLET PO SCH ×2 (12:33→20:57)
[2018-11-08] MEDS: AMIODARONE 200 MG TABLET PO SCH (12:33)
[2018-11-08] MEDS: PANTOPRAZOLE 40 MG TABLET PO SCH (12:33)
[2018-11-08] MEDS: GABAPENTIN 50 MG/ML 30 ML/BOTTLE PO SCH ×3 (12:34→20:57)
[2018-11-09 05:13] LABS: Basophils # 0.1 10*3/uL (0.0-0.2); Eosinophils # 0.1 10*3/uL (0.0-0.87); Eosinophils % 1.9 % (0.00-10.9); Hematocrit 37.4 VOL% (35.7-47.0); Hemoglobin 11.6 GM/DL (12.0-16.0); Immature Granulocytes % 0.4 %; Immature Granulocytes Absolute 0.03 #; Lymphocytes # 2.3 10*3/uL (1.4-4.0); Lymphocytes % 33.7 % (21.3-54.2); Mean Corpuscular Volume 98.2 FL (87-102); Mean Platelet Volume 11.6 FL (9.6-12.0); Monocytes % 14.8 % (1.7-12.7); Neutrophils % 48.2 % (38.7-73.9); Platelet Count 196 T/CUMM (130-400); Red Blood Count 3.81 MC/CUMM (3.8-5.5); White Blood Count 6.8 T/CUMM (4-12)
[2018-11-09 05:44] LABS: Albumin 3.6 G/DL (3.4-5.0); Bilirubin,Total 0.7 MG/DL (0.2-1.0); Calcium 10.1 MG/DL (8.5-10.1); Osmolality,Calculated 295.3 MOS/KG (273-304); Total Protein 8.2 G/DL (6.4-8.3)
[2018-11-09] MEDS ORDERED: LEVOTHYROXINE 150 MCG TABLET PO SCH (06:30)
[2018-11-09] MEDS ORDERED: LEVOTHYROXINE 200 MCG TABLET PO SCH (06:30)
[2018-11-09] MEDS: INSULIN LISPRO 100 UNIT/ML SUBCUT SCH ×2 (07:53→13:03)
[2018-11-09] MEDS ORDERED: FUROSEMIDE 80 MG TABLET PO SCH (08:00)
[2018-11-09] MEDS: ROSUVASTATIN 20 MG TABLET PO SCH (08:56)
[2018-11-09] MEDS: URSODIOL 300 MG CAPSULE PO SCH (08:56)
[2018-11-09] MEDS: metOLazone 5 MG TABLET PO SCH (08:56)
[2018-11-09] MEDS: ASPIRIN EC 81 MG TABLET PO SCH (08:56)
[2018-11-09] MEDS: PANTOPRAZOLE 40 MG TABLET PO SCH (08:57)
[2018-11-09] MEDS: VITAMIN E 400 UNIT CAPSULE PO SCH (08:57)
[2018-11-09] MEDS: ALLOPURINOL 100 MG TABLET PO SCH (08:57)
[2018-11-09] MEDS: ACETAMINOPHEN 325 MG TABLET PO SCH (08:57)
[2018-11-09] MEDS: AMIODARONE 200 MG TABLET PO SCH (08:57)
[2018-11-09] MEDS: DOCUSATE SODIUM 100 MG CAPSULE PO SCH (08:57)
[2018-11-09] MEDS: GABAPENTIN 50 MG/ML 30 ML/BOTTLE PO SCH (10:08)
[2018-11-09 11:58] VITALS: BP 141/68
== END 2018-11-09 16:20 | disposition home or self-care (01) ==
LOC: N.EDINP 09:11 → N.ED 09:11 → N.TELES 20:54
PROVIDERS: ADMIT Family Medicine; ATTEND Family Medicine

== ENCOUNTER 2022-01-19 19:05 | Inpatient (IN) ==
[2022-01-20 01:44] LABS: Basophils % 0.2 % (0.0-0.8); Eosinophils % 0.1 % (0.00-10.9); Hematocrit 28.2 VOL% (35.7-47.0); Hemoglobin 8.9 GM/DL (12.0-16.0); Immature Granulocytes % 1.7 %; Immature Granulocytes Absolute 0.22 #; Lymphocytes # 1.5 10*3/uL (1.4-4.0); Lymphocytes % 11.4 % (21.3-54.2); Mean Corpuscular HGB Conc 31.6 GM/DL (32-36); Mean Corpuscular Volume 93.7 FL (87-102); Mean Platelet Volume 10.4 FL (9.6-12.0); Monocytes % 7.4 % (1.7-12.7); NRBC # 0.03 10*3/uL; Neutrophils % 79.2 % (38.7-73.9); Platelet Count 306 T/CUMM (130-400); Red Blood Count 3.01 MC/CUMM (3.8-5.5); Red Cell Distribution Width 18.6 % (9.3-17.3); White Blood Count 13.3 T/CUMM (4-12)
[2022-01-20 01:59] LABS: INR 1.1; PT Patient Result 12.1 SECS (10.1-12.1); Partial Thromboplastin Time 32.6 SECS (23.7-32.9)
[2022-01-20] MEDS ORDERED: OXYMETAZOLINE 0.05% NASAL SPRAY 15 ML BOTTLE ONE (01:59)
[2022-01-20 02:03] LABS: Alanine Aminotransferase 43 U/L (13-56); Albumin 2.2 G/DL (3.4-5.0); Alkaline Phosphatase 85 U/L (45-117); Amylase 179 U/L (25-115); Aspartate Amino Transferase 61 U/L (0-37); Bilirubin,Total < 0.39 MG/DL (0.20-1.00); Blood Urea Nitrogen 164 MG/DL (7-18); Calcium 9.5 MG/DL (8.5-10.1); Carbon Dioxide 22 MMOL/L (21-32); Chloride 94 MMOL/L (98-107); Glucose 119 MG/DL (74-106); Osmolality,Calculated 314.8 MOS/KG (273-304); Potassium 3.7 MMOL/L (3.5-5.1); Sodium 130 MMOL/L (136-145); Total Protein 7.4 G/DL (6.4-8.2)
[2022-01-20] MEDS ORDERED: ONDANSETRON 4 MG/2 ML VIAL IV STA (02:06)
[2022-01-20] MEDS ORDERED: ONDANSETRON 4 MG/2 ML VIAL ONE (02:06)
[2022-01-20 02:21] LABS: Bacteria,Urine Moderate /HPF (Few); RBC,Urine 762 /HPF (0-4)
[2022-01-20 02:33] LABS: Bilirubin,Urine Negative (Negative); Blood, Urine Large mg/dL (Negative); Glucose,Urine (UA) Negative (Negative); Ketones,Urine Negative (Negative); Nitrite,Urine Negative (Negative); Protein,Urine 100 mg/dL (Negative); Urine Appearance Turbid (Clear); Urine Color Brown (Yellow); Urine Specific Gravity 1.015 (1.001-1.035)
[2022-01-20 02:34] LABS: Urine Urobilinogen 0.2 eU/dL (<2.0)
[2022-01-20] MEDS ORDERED: cefTRIAXone 1,000 MG in SODIUM CHLORIDE 0.9% 100 ML IV STA (02:53)
[2022-01-20] MEDS ORDERED: GLUCAGON 1 MG VIAL IM PRN (03:06)
[2022-01-20] MEDS ORDERED: PANTOPRAZOLE 40 MG VIAL IV STA (03:13)
[2022-01-20] MEDS ORDERED: DEXTROSE 10% 250 ML BAG IV PRN (03:23)
[2022-01-20] MEDS: SODIUM CHLORIDE 0.9% 1,000 ML IV SCH ×2 (04:30→16:10)
[2022-01-20] MEDS: INSULIN REGULAR 100 UNIT/ML SUBCUT SCH ×4 (06:20→20:00)
[2022-01-20] MEDS: LEVOTHYROXINE 150 MCG TABLET PO SCH (10:30)
[2022-01-20] MEDS: ACETAMINOPHEN 325 MG TABLET PO PRN ×2 (11:42→22:18)
[2022-01-21] MEDS: traMADol 50 MG TABLET PO PRN ×3 (00:50→17:03)
[2022-01-21] MEDS: cefTRIAXone 1,000 MG in SODIUM CHLORIDE 0.9% 100 ML IV SCH (03:51)
[2022-01-21] MEDS: SODIUM CHLORIDE 0.9% 1,000 ML IV SCH (04:53)
[2022-01-21] MEDS: LEVOTHYROXINE 150 MCG TABLET PO SCH (05:56)
[2022-01-21 06:08] LABS: Basophils % 0.2 % (0.0-0.8); Eosinophils % 0.3 % (0.00-10.9); Hematocrit 23.2 VOL% (35.7-47.0); Hemoglobin 7.4 GM/DL (12.0-16.0); Immature Granulocytes % 2.6 %; Immature Granulocytes Absolute 0.32 #; Lymphocytes # 2.2 10*3/uL (1.4-4.0); Lymphocytes % 18.1 % (21.3-54.2); Mean Corpuscular HGB Conc 31.9 GM/DL (32-36); Mean Corpuscular Volume 93.5 FL (87-102); Mean Platelet Volume 10.6 FL (9.6-12.0); Monocytes # 1.2 10*3/uL (0.11-0.8); Monocytes % 9.6 % (1.7-12.7); NRBC # 0.02 10*3/uL; Neutrophils % 69.2 % (38.7-73.9); Platelet Count 293 T/CUMM (130-400); Red Blood Count 2.48 MC/CUMM (3.8-5.5); Red Cell Distribution Width 18.3 % (9.3-17.3); White Blood Count 12.1 T/CUMM (4-12)
[2022-01-21 06:29] LABS: Alanine Aminotransferase 30 U/L (13-56); Albumin 1.9 G/DL (3.4-5.0); Alkaline Phosphatase 64 U/L (45-117); Aspartate Amino Transferase 40 U/L (0-37); Bilirubin,Total < 0.39 MG/DL (0.20-1.00); Blood Urea Nitrogen 141 MG/DL (7-18); Calcium 7.8 MG/DL (8.5-10.1); Carbon Dioxide 22 MMOL/L (21-32); Chloride 98 MMOL/L (98-107); Glucose 107 MG/DL (74-106); Sodium 136 MMOL/L (136-145); Total Protein 6.2 G/DL (6.4-8.2)
[2022-01-21 06:31] LABS: Potassium 2.5 MMOL/L (3.5-5.1)
[2022-01-21] MEDS ORDERED: POTASSIUM CHLORIDE 20 MEQ TABLET PO ONE (06:40)
[2022-01-21] MEDS: POTASSIUM CHLORIDE RIDER 10 MEQ/100 ML PREMIX IV PRN ×3 (06:53→22:48)
[2022-01-21] MEDS ORDERED: SODIUM CHLORIDE 0.9% 1,000 ML IV PRN (08:04)
[2022-01-21] MEDS: INSULIN REGULAR 100 UNIT/ML SUBCUT SCH ×4 (08:32→22:49)
[2022-01-21] MEDS ORDERED: MAGNESIUM SULF RIDER 2 GM/50 ML PREMIX IV ONE (09:00)
[2022-01-21] MEDS ORDERED: PANTOPRAZOLE 40 MG VIAL IV SCH (09:00)
[2022-01-21] MEDS: PANTOPRAZOLE 40 MG VIAL IV SCH ×3 (09:01→20:43)
[2022-01-21] MEDS: ONDANSETRON 4 MG/2 ML VIAL IV PRN ×2 (09:03→17:02)
[2022-01-21] MEDS: SODIUM CHLOR 0.9% KCL 40 MEQ 40 MEQ/1,000 ML BAG IV SCH (10:10)
[2022-01-21] MEDS: MENTHOL/ZINC OXIDE OINT 71 GM JAR TOP SCH (17:54)
[2022-01-21 19:35] LABS: Hematocrit 28.3 VOL% (35.7-47.0)
[2022-01-22] MEDS: POTASSIUM CHLORIDE RIDER 10 MEQ/100 ML PREMIX IV PRN ×3 (00:06→03:11)
[2022-01-22] MEDS: LEVOTHYROXINE 150 MCG TABLET PO SCH (06:05)
[2022-01-22 06:18] LABS: Basophils % 0.4 % (0.0-0.8); Eosinophils # 0.1 10*3/uL (0.0-0.87); Eosinophils % 0.6 % (0.00-10.9); Hematocrit 27.7 VOL% (35.7-47.0); Hemoglobin 9.4 GM/DL (12.0-16.0); Immature Granulocytes % 6.3 %; Immature Granulocytes Absolute 0.69 #; Lymphocytes # 2.8 10*3/uL (1.4-4.0); Lymphocytes % 25.7 % (21.3-54.2); Mean Corpuscular HGB Conc 33.9 GM/DL (32-36); Mean Corpuscular Volume 90.5 FL (87-102); Mean Platelet Volume 10.2 FL (9.6-12.0); Monocytes # 1.1 10*3/uL (0.11-0.8); Monocytes % 10.4 % (1.7-12.7); NRBC # 0.03 10*3/uL; Neutrophils % 56.6 % (38.7-73.9); Platelet Count 291 T/CUMM (130-400); Red Blood Count 3.06 MC/CUMM (3.8-5.5); Red Cell Distribution Width 18.3 % (9.3-17.3)
[2022-01-22 06:40] LABS: Hypochromia Slight; Lymphocytes 25 % (20-55); Microcytosis Slight; Platelet Estimate Adequate; Total Cells Counted 100
[2022-01-22 06:44] LABS: Alanine Aminotransferase 26 U/L (13-56); Alkaline Phosphatase 62 U/L (45-117); Aspartate Amino Transferase 35 U/L (0-37); Bilirubin,Total < 0.39 MG/DL (0.20-1.00); Blood Urea Nitrogen 117 MG/DL (7-18); Carbon Dioxide 22 MMOL/L (21-32); Chloride 105 MMOL/L (98-107); Glucose 97 MG/DL (74-106); Osmolality,Calculated 315.4 MOS/KG (273-304); Potassium 3.4 MMOL/L (3.5-5.1); Sodium 140 MMOL/L (136-145); Total Protein 6.2 G/DL (6.4-8.2)
[2022-01-22] MEDS ORDERED: SODIUM CHLORIDE 0.9% 1,000 ML IV SCH (08:00)
[2022-01-22] MEDS: INSULIN REGULAR 100 UNIT/ML SUBCUT SCH ×4 (08:09→21:33)
[2022-01-22] MEDS ORDERED: MAGNESIUM SULF RIDER 2 GM/50 ML PREMIX IV ONE (08:30)
[2022-01-22] MEDS: PANTOPRAZOLE 40 MG VIAL IV SCH ×2 (10:05→21:33)
[2022-01-22] MEDS: cefTRIAXone 1,000 MG in SODIUM CHLORIDE 0.9% 100 ML IV SCH (10:07)
[2022-01-22] MEDS: MENTHOL/ZINC OXIDE OINT 71 GM JAR TOP SCH (10:15)
[2022-01-22] MEDS ORDERED: LIDOCAINE 2% 5 ML VIAL ONE (14:11)
[2022-01-22] MEDS ORDERED: propofoL 200 MG/20 ML VIAL IV ONE (14:11)
[2022-01-22] MEDS: SODIUM CHLOR 0.9% KCL 40 MEQ 40 MEQ/1,000 ML BAG IV SCH (15:54)
[2022-01-22] MEDS: traMADol 50 MG TABLET PO PRN ×2 (16:32→23:57)
[2022-01-22] MEDS: ONDANSETRON 4 MG/2 ML VIAL IV PRN (16:33)
[2022-01-23 05:30] LABS: Basophils % 0.3 % (0.0-0.8); Eosinophils # 0.1 10*3/uL (0.0-0.87); Eosinophils % 0.9 % (0.00-10.9); Hematocrit 28.1 VOL% (35.7-47.0); Immature Granulocytes % 7.4 %; Immature Granulocytes Absolute 0.75 #; Lymphocytes # 1.9 10*3/uL (1.4-4.0); Lymphocytes % 18.1 % (21.3-54.2); Mean Corpuscular Volume 92.1 FL (87-102); Monocytes % 10.2 % (1.7-12.7); Neutrophils % 63.1 % (38.7-73.9); Platelet Count 313 T/CUMM (130-400); Red Blood Count 3.05 MC/CUMM (3.8-5.5); Red Cell Distribution Width 18.6 % (9.3-17.3); White Blood Count 10.2 T/CUMM (4-12)
[2022-01-23 05:46] LABS: Calcium 8.6 MG/DL (8.5-10.1); Potassium 2.9 MMOL/L (3.5-5.1)
[2022-01-23 05:57] LABS: Band Neutrophils 1 % (0-10); Eosinophils 1 % (0-10); Lymphocytes 19 % (20-55); Platelet Estimate Adequate; Total Cells Counted 100
[2022-01-23 05:58] LABS: Hypochromia Slight; Microcytosis Slight
[2022-01-23] MEDS: LEVOTHYROXINE 150 MCG TABLET PO SCH (06:51)
[2022-01-23] MEDS: INSULIN REGULAR 100 UNIT/ML SUBCUT SCH ×4 (07:56→20:47)
[2022-01-23] MEDS: PANTOPRAZOLE 40 MG VIAL IV SCH ×2 (08:53→20:45)
[2022-01-23] MEDS ORDERED: POTASSIUM CHLORIDE 20 MEQ TABLET PO ONE (09:00)
[2022-01-23] MEDS: LEVOFLOXACIN INJ 250 MG/50 ML PREMIX IV SCH (09:06)
[2022-01-23] MEDS: traMADol 50 MG TABLET PO PRN (13:27)
[2022-01-23] MEDS: MENTHOL/ZINC OXIDE OINT 71 GM JAR TOP SCH (13:38)
[2022-01-23] MEDS: SODIUM CHLOR 0.9% KCL 40 MEQ 40 MEQ/1,000 ML BAG IV SCH ×2 (19:08→19:09)
[2022-01-24] MEDS: traMADol 50 MG TABLET PO PRN ×3 (04:59→23:42)
[2022-01-24] MEDS: LEVOTHYROXINE 150 MCG TABLET PO SCH (05:30)
[2022-01-24 05:44] LABS: Basophils % 0.4 % (0.0-0.8); Eosinophils # 0.1 10*3/uL (0.0-0.87); Eosinophils % 1.2 % (0.00-10.9); Hematocrit 28.2 VOL% (35.7-47.0); Hemoglobin 8.8 GM/DL (12.0-16.0); Immature Granulocytes % 6.1 %; Immature Granulocytes Absolute 0.57 #; Lymphocytes # 2.4 10*3/uL (1.4-4.0); Mean Corpuscular HGB Conc 31.2 GM/DL (32-36); Mean Corpuscular Volume 93.1 FL (87-102); Mean Platelet Volume 9.6 FL (9.6-12.0); Monocytes % 10.4 % (1.7-12.7); Neutrophils % 55.9 % (38.7-73.9); Platelet Count 336 T/CUMM (130-400); Red Blood Count 3.03 MC/CUMM (3.8-5.5); Red Cell Distribution Width 18.7 % (9.3-17.3); White Blood Count 9.3 T/CUMM (4-12)
[2022-01-24 06:05] LABS: Eosinophils 3 % (0-10); Hypochromia Slight; Lymphocytes 20 % (20-55); Platelet Estimate Normal; Total Cells Counted 100
[2022-01-24 06:11] LABS: Osmolality,Calculated 297.3 MOS/KG (273-304); Potassium 3.3 MMOL/L (3.5-5.1)
[2022-01-24] MEDS: INSULIN REGULAR 100 UNIT/ML SUBCUT SCH ×4 (07:30→20:52)
[2022-01-24] MEDS: LEVOFLOXACIN INJ 250 MG/50 ML PREMIX IV SCH (09:39)
[2022-01-24] MEDS: PANTOPRAZOLE 40 MG VIAL IV SCH ×2 (09:40→21:25)
[2022-01-24] MEDS: MENTHOL/ZINC OXIDE OINT 71 GM JAR TOP SCH (09:44)
[2022-01-24] MEDS ORDERED: POTASSIUM CHLORIDE 20 MEQ TABLET PO ONE (10:56)
[2022-01-24 13:07] LABS: % Iron Saturation 47.1 % (18-50)
[2022-01-24 13:28] LABS: Vitamin B12 > 2000 PG/ML (211-911)
[2022-01-25 05:47] LABS: Basophils % 0.4 % (0.0-0.8); Eosinophils # 0.1 10*3/uL (0.0-0.87); Eosinophils % 1.2 % (0.00-10.9); Hematocrit 29.3 VOL% (35.7-47.0); Hemoglobin 9.2 GM/DL (12.0-16.0); Immature Granulocytes % 6.2 %; Immature Granulocytes Absolute 0.56 #; Lymphocytes # 2.8 10*3/uL (1.4-4.0); Lymphocytes % 31.7 % (21.3-54.2); Mean Corpuscular HGB Conc 31.4 GM/DL (32-36); Mean Corpuscular Volume 93.9 FL (87-102); Mean Platelet Volume 9.9 FL (9.6-12.0); Monocytes # 0.8 10*3/uL (0.11-0.8); Monocytes % 9.4 % (1.7-12.7); Neutrophils % 51.1 % (38.7-73.9); Platelet Count 374 T/CUMM (130-400); Red Blood Count 3.12 MC/CUMM (3.8-5.5); Red Cell Distribution Width 18.9 % (9.3-17.3)
[2022-01-25 06:24] LABS: Calcium 9.4 MG/DL (8.5-10.1); Osmolality,Calculated 296.3 MOS/KG (273-304); Potassium 3.1 MMOL/L (3.5-5.1)
[2022-01-25] MEDS: LEVOTHYROXINE 150 MCG TABLET PO SCH (06:30)
[2022-01-25 06:54] LABS: Band Neutrophils 1 % (0-10); Eosinophils 3 % (0-10); Lymphocytes 24 % (20-55); Metamyelocytes 1 %; Nucleated Red Blood Cells 1 /100 WBC (0-5); Total Cells Counted 100
[2022-01-25 06:55] LABS: Hypochromia Slight
[2022-01-25 06:56] LABS: Microcytosis 1+
[2022-01-25] MEDS: INSULIN REGULAR 100 UNIT/ML SUBCUT SCH ×4 (08:53→22:04)
[2022-01-25] MEDS: MENTHOL/ZINC OXIDE OINT 71 GM JAR TOP SCH (10:44)
[2022-01-25] MEDS: LEVOFLOXACIN INJ 250 MG/50 ML PREMIX IV SCH (10:44)
[2022-01-25] MEDS: PANTOPRAZOLE 40 MG VIAL IV SCH ×2 (10:52→21:53)
[2022-01-25] MEDS ORDERED: POLYETHYLENE GLYCOL POWDER 17 GM PACK PO ONE (12:42)
[2022-01-25] MEDS ORDERED: POTASSIUM CHLORIDE 20 MEQ TABLET PO ONE (13:24)
[2022-01-25] MEDS ORDERED: MAGNESIUM SULF RIDER 2 GM/50 ML PREMIX IV ONE (13:25)
[2022-01-25] MEDS: POTASSIUM CHLORIDE 20 MEQ TABLET PO PRN ×3 (14:03→18:30)
[2022-01-25] MEDS: traMADol 50 MG TABLET PO PRN (21:50)
[2022-01-25] MEDS: ursodioL 300 MG CAPSULE PO SCH (21:52)
[2022-01-25] MEDS: ROSUVASTATIN 20 MG TABLET PO SCH (21:52)
[2022-01-25] MEDS: POTASSIUM CHLORIDE 20 MEQ TABLET PO SCH (21:53)
[2022-01-25] MEDS: allopurinoL 100 MG TABLET PO SCH (21:53)
[2022-01-26 05:39] LABS: Basophils # 0.1 10*3/uL (0.0-0.2); Basophils % 0.7 % (0.0-0.8); Eosinophils # 0.1 10*3/uL (0.0-0.87); Eosinophils % 0.8 % (0.00-10.9); Hemoglobin 9.4 GM/DL (12.0-16.0); Immature Granulocytes % 4.2 %; Immature Granulocytes Absolute 0.37 #; Lymphocytes # 2.6 10*3/uL (1.4-4.0); Lymphocytes % 30.1 % (21.3-54.2); Mean Corpuscular HGB Conc 31.3 GM/DL (32-36); Mean Corpuscular Volume 95.5 FL (87-102); Mean Platelet Volume 9.9 FL (9.6-12.0); Monocytes # 0.9 10*3/uL (0.11-0.8); Monocytes % 10.6 % (1.7-12.7); Neutrophils % 53.6 % (38.7-73.9); Platelet Count 378 T/CUMM (130-400); Red Blood Count 3.14 MC/CUMM (3.8-5.5); Red Cell Distribution Width 19.2 % (9.3-17.3); White Blood Count 8.8 T/CUMM (4-12)
[2022-01-26 05:58] LABS: Calcium 9.5 MG/DL (8.5-10.1); Osmolality,Calculated 300.1 MOS/KG (273-304); Potassium 4.4 MMOL/L (3.5-5.1)
[2022-01-26] MEDS: LEVOTHYROXINE 175 MCG TABLET PO SCH (06:17)
[2022-01-26] MEDS: INSULIN REGULAR 100 UNIT/ML SUBCUT SCH ×4 (07:59→21:24)
[2022-01-26] MEDS: PANTOPRAZOLE 40 MG VIAL IV SCH ×2 (09:22→21:24)
[2022-01-26] MEDS: POLYETHYLENE GLYCOL POWDER 17 GM PACK PO SCH (09:25)
[2022-01-26] MEDS: DOCUSATE/SENNA 50-8.6 MG TABLET PO SCH (09:25)
[2022-01-26] MEDS: CHOLECALCIFEROL 5,000 UNIT TABLET PO SCH (09:26)
[2022-01-26] MEDS: MULTIVITAMIN (CENTRUM) TABLET PO SCH (09:26)
[2022-01-26] MEDS: ASCORBIC ACID 500 MG TABLET PO SCH (09:26)
[2022-01-26] MEDS: predniSONE 5 MG TABLET PO SCH (09:26)
[2022-01-26] MEDS: AMIODARONE 200 MG TABLET PO SCH (09:26)
[2022-01-26] MEDS: allopurinoL 100 MG TABLET PO SCH ×2 (09:26→21:24)
[2022-01-26] MEDS: MENTHOL/ZINC OXIDE OINT 71 GM JAR TOP SCH (09:27)
[2022-01-26] MEDS: ursodioL 300 MG CAPSULE PO SCH ×2 (09:27→21:23)
[2022-01-26] MEDS: VITAMIN E 400 UNIT CAPSULE PO SCH (09:27)
[2022-01-26] MEDS: LEVOFLOXACIN INJ 250 MG/50 ML PREMIX IV SCH (09:27)
[2022-01-26] MEDS: POTASSIUM CHLORIDE 20 MEQ TABLET PO SCH ×2 (10:01→21:23)
[2022-01-26] MEDS: ONDANSETRON 4 MG/2 ML VIAL IV PRN (11:26)
[2022-01-26] MEDS: traMADol 50 MG TABLET PO PRN ×2 (14:54→21:24)
[2022-01-26] MEDS: ROSUVASTATIN 20 MG TABLET PO SCH (21:23)
[2022-01-27] MEDS: traMADol 50 MG TABLET PO PRN ×3 (00:52→20:43)
[2022-01-27] MEDS: ACETAMINOPHEN 325 MG TABLET PO PRN (00:52)
[2022-01-27 05:29] LABS: Basophils # 0.1 10*3/uL (0.0-0.2); Basophils % 0.8 % (0.0-0.8); Eosinophils # 0.1 10*3/uL (0.0-0.87); Hematocrit 29.7 VOL% (35.7-47.0); Hemoglobin 9.1 GM/DL (12.0-16.0); Immature Granulocytes % 2.2 %; Lymphocytes # 2.2 10*3/uL (1.4-4.0); Lymphocytes % 23.8 % (21.3-54.2); Mean Corpuscular HGB Conc 30.6 GM/DL (32-36); Mean Corpuscular Volume 97.1 FL (87-102); Mean Platelet Volume 9.6 FL (9.6-12.0); Monocytes # 0.9 10*3/uL (0.11-0.8); Monocytes % 9.6 % (1.7-12.7); Neutrophils % 62.6 % (38.7-73.9); Platelet Count 327 T/CUMM (130-400); Red Blood Count 3.06 MC/CUMM (3.8-5.5); Red Cell Distribution Width 19.4 % (9.3-17.3); White Blood Count 9.2 T/CUMM (4-12)
[2022-01-27 05:47] LABS: Calcium 9.9 MG/DL (8.5-10.1); Osmolality,Calculated 299.1 MOS/KG (273-304); Potassium 4.1 MMOL/L (3.5-5.1)
[2022-01-27] MEDS: LEVOTHYROXINE 175 MCG TABLET PO SCH (06:25)
[2022-01-27] MEDS: INSULIN REGULAR 100 UNIT/ML SUBCUT SCH ×4 (07:55→21:41)
[2022-01-27] MEDS: PANTOPRAZOLE 40 MG VIAL IV SCH ×2 (09:59→20:41)
[2022-01-27] MEDS: VITAMIN E 400 UNIT CAPSULE PO SCH (09:59)
[2022-01-27] MEDS: POTASSIUM CHLORIDE 20 MEQ TABLET PO SCH ×2 (09:59→20:40)
[2022-01-27] MEDS: ASCORBIC ACID 500 MG TABLET PO SCH (09:59)
[2022-01-27] MEDS: ursodioL 300 MG CAPSULE PO SCH ×2 (09:59→20:38)
[2022-01-27] MEDS: AMIODARONE 200 MG TABLET PO SCH (10:00)
[2022-01-27] MEDS: MULTIVITAMIN (CENTRUM) TABLET PO SCH (10:00)
[2022-01-27] MEDS: DOCUSATE/SENNA 50-8.6 MG TABLET PO SCH (10:00)
[2022-01-27] MEDS: CHOLECALCIFEROL 5,000 UNIT TABLET PO SCH (10:00)
[2022-01-27] MEDS: predniSONE 5 MG TABLET PO SCH (10:00)
[2022-01-27] MEDS: allopurinoL 100 MG TABLET PO SCH ×2 (10:00→20:39)
[2022-01-27] MEDS: MENTHOL/ZINC OXIDE OINT 71 GM JAR TOP SCH (10:00)
[2022-01-27] MEDS: POLYETHYLENE GLYCOL POWDER 17 GM PACK PO SCH (10:01)
[2022-01-27] MEDS: LEVOFLOXACIN INJ 250 MG/50 ML PREMIX IV SCH (10:19)
[2022-01-27] MEDS ORDERED: LACTULOSE 20 GM/30 ML UDCUP PO PRN (18:43)
[2022-01-27] MEDS: ROSUVASTATIN 20 MG TABLET PO SCH (21:54)
[2022-01-28] MEDS: LEVOTHYROXINE 175 MCG TABLET PO SCH (07:05)
[2022-01-28] MEDS: INSULIN REGULAR 100 UNIT/ML SUBCUT SCH ×3 (08:28→16:53)
[2022-01-28] MEDS: traMADol 50 MG TABLET PO PRN (08:51)
[2022-01-28] MEDS: ursodioL 300 MG CAPSULE PO SCH (09:31)
[2022-01-28] MEDS: MENTHOL/ZINC OXIDE OINT 71 GM JAR TOP SCH (09:31)
[2022-01-28] MEDS: LEVOFLOXACIN INJ 250 MG/50 ML PREMIX IV SCH (09:31)
[2022-01-28] MEDS: MULTIVITAMIN (CENTRUM) TABLET PO SCH (09:31)
[2022-01-28] MEDS: POTASSIUM CHLORIDE 20 MEQ TABLET PO SCH (09:31)
[2022-01-28] MEDS: AMIODARONE 200 MG TABLET PO SCH (09:31)
[2022-01-28] MEDS: CHOLECALCIFEROL 5,000 UNIT TABLET PO SCH (09:32)
[2022-01-28] MEDS: PANTOPRAZOLE 40 MG VIAL IV SCH (09:32)
[2022-01-28] MEDS: VITAMIN E 400 UNIT CAPSULE PO SCH (09:32)
[2022-01-28] MEDS: POLYETHYLENE GLYCOL POWDER 17 GM PACK PO SCH (09:32)
[2022-01-28] MEDS: allopurinoL 100 MG TABLET PO SCH (09:32)
[2022-01-28] MEDS: DOCUSATE/SENNA 50-8.6 MG TABLET PO SCH (09:32)
[2022-01-28] MEDS: ASCORBIC ACID 500 MG TABLET PO SCH (09:32)
[2022-01-28] MEDS: predniSONE 5 MG TABLET PO SCH (09:32)
[2022-01-28] MEDS ORDERED: POTASSIUM BICARB EFFERVESCENT 20 MEQ TAB.EFF PO PRN (10:00)
[2022-01-28] MEDS ORDERED: POTASSIUM BICARB EFFERVESCENT 20 MEQ TAB.EFF PO SCH (10:00)
[2022-01-28 15:54] VITALS: BP 169/84
[2022-01-29] MEDS ORDERED: LEVOFLOXACIN 250 MG TABLET PO SCH (09:00)
== END 2022-01-28 18:56 | disposition home health service (06) | DRG 813 ==
LOC: N.ED 19:05 → SUATTDRO 01-20 03:06 → N.EDINP 01-20 03:06 → N.5E 01-20 15:58
PROVIDERS: ADMIT Internal Medicine; ATTEND Internal Medicine